=== PATIENT | male | born 1965 | race Caucasian/White ===

== ENCOUNTER 2021-03-01 09:04 | Outpatient (CLI) | payer OTHER ==
[2021-03-02 08:37] VITALS: BP 134/85
--- NOTE | 2021-03-02 08:37 | SLEEP CARE CONSULTATION ---
Information from patient questionnaire entered by Chandan Howe MA. I have reviewed and concur with the information entered by Chandan Howe MA. This document represents the service I personally performed and the decisions made by me, Zaina Talamantes MD, [facility]. History of Present Illness Service Date and Time: 03/01/2021 0904 Reason for Visit: New patient Chief Complaint: reports: Observed pauses in breathing. denies: Snoring Date of Onset: 1989 Usual bedtime: 1100 pm Time it takes to fall asleep: 5-10 minutes Snores at night: Yes Observed to quit breathing while asleep: Yes Sleeps alone due to snoring: No Number of times waking at night: once Reasons for waking at night: reports: Other (unknowm) Morning headache: Yes Sleepy or fatigued during the day: Yes Ever fallen asleep while driving: No Takes day naps: No Dreams during day naps: No Prior sleep studies: No Additional HPI information: I had the pleasure of seeing Mr. Huggins today regarding the possibility of him having a sleep disorder. As you know, he is a 55 year old gentleman who complains of loud snore and his has seen him quit breathing while asleep. The patient tells me that he normally goes to bed around 11 pm, and it takes him approximately 5 - 10 minutes to fall asleep. His sleeps in the same bed. She uses a CPAP. He can recall waking up on the average of 0 - 1 time during the night. Most of the time he wakes up because of having to use the bathroom. He has awakened occasionally because of his own snoring, choking, and having to gasp for air. There is not a lot of tossing and turning in his sleep. No somniloquy (sleep talking) or somnambulism (sleep walking). Generally, there is no recollection of dreams. In the morning he usually gets up out of the bed around 6 - 7 a.m. feeling refreshed and rested. He usually does have a morning headache that lasts for about 30 minutes.. During the day he does not feel sleepy and fatigued. His score on [place] Sleepiness Scale is 7 out of 24. He never has fallen asleep while driving nor has had any accident due to sleepiness. He usually does not take naps during the day. Upon falling asleep during the day he denies having vivid dreams. He has never had sleep paralysis, experienced cataplexy or symptoms of restless leg syndrome. He denies having impaired concentration during the day. 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 Patient is and lives in [place]. Have you smoked in the past 12 months: No Alcohol use: Yes Alcohol amount and frequency: 2-5 X weekly Caffeine use: Yes Caffeine amount and frequency: 1-2 daily Family History Family Hx Sleep Apnea: Father: Snoring, Sleep apnea - Untreated, Sibling: Snoring, Sleep apnea - Treated Allergies and Home Medications Known drug allergies: No Drug allergies reviewed: Yes Home medication list reviewed: Yes Review of Systems Cardiovascular: denies: high blood pressure, palpitations, chest pain, irregular heart rate or pulse, leg or foot swelling, have to sleep sitting up, other Respiratory: denies: shortness of breath, wheeze, sputum production, chronic cough, other Gastrointestinal: denies: heartburn, difficulty swallowing, nausea, vomitting, diarrhea, abdominal pain, other Urinary: denies: incontinence, frequency, urgency, impotence, other Neurological: denies: headaches, seizure, head trauma, disorientation, speech dysfunction, gait or balance problems, fainting or unconsciousness, other Ear/Nose/Throat: denies: nasal congestion, sinus problems, nose bleeds, dry mouth/throat, hoarseness, injury to nose, tonsillectomy, wisdom teeth removed, other Endocrine: denies: thyroid disease, history of goiter, sluggishness, too hot or cold, excessive thirst, increased appetite, increased urination, unexplained weakness, other Physical Exam Vital signs obtained and entered by: Miko HOWE CMA [facility] Blood Pressure: 134/85 (right) Heart Rate: 75 O2 Saturation: 97 (with mask) Height: 6 ft 2 in Weight: 235 lb (with clothes boots) Body Mass Index: 30.2 BMI Classification: Obese Impression and Plan IMPRESSION: 1. Obstructive Sleep Apnea-Hypopnea Syndrome, as suggested by history of loud and irregular snoring, observed cessation of breath while asleep, nocturnal choking, and morning headache, that goes away quickly after waking up. Narrow oropharynx and obesity are common predisposing factors for obstructive sleep apnea-hypopnea syndrome. I recommend proceeding to polysomnography to confirm the diagnosis and to assess severity. If he has significant sleep disordered breathing, a manual CPAP titration study will also be performed to find the optimal treatment pressure. I informed the patient of what the sleep studies involve and after some discussion, he agreed to proceed. Plan: 1. Schedule a home sleep apnea test (HSAT) because his insurance is [employer]. 2. Avoid long distance driving or when feeling sleepy. 3. Avoid alcohol, sedative and muscle relaxant around bedtime. 4. Attempt to lose weight. 5. Return for follow up after the test. Follow up with Sleep Care in: 1-2 months Visit Type: In Office Time Spent with Patient (minutes): 15 Provider Statement: I spent 100% of the Face to Face Visit with the patient with greater than 50% spent counseling the patient and coordination of care.
== END 2021-03-01 09:05 | disposition home or self-care (01) ==
LOC: SC 09:04
PROVIDERS: ATTEND Internal Medicine Pulmonary Disease
DX: R51.9 Headache, unspecified (principal); R06.83 Snoring; G47.8 Other sleep disorders; R06.81 Apnea, not elsewhere classified; E66.9 Obesity, unspecified; Z68.30 Body mass index [BMI] 30.0-30.9, adult
CPT/HCPCS: 99202; 99212

== ENCOUNTER 2021-03-01 10:49 | Outpatient (CLI) | payer OTHER | END 2021-03-01 10:50 | disposition home or self-care (01) | LOC: SC 10:49 | PROVIDERS: ATTEND Internal Medicine Pulmonary Disease | DX: G47.33 Obstructive sleep apnea (adult) (pediatric) (principal); R09.02 Hypoxemia | CPT/HCPCS: 95806 ==

== ENCOUNTER 2021-03-15 11:00 | Outpatient (CLI) | payer OTHER ==
--- NOTE | 2021-03-16 21:49 | SLEEP CARE CONSULTATION ---
Information from patient questionnaire entered by Chandan Howe MA. I have reviewed and concur with the information entered by Chandan Howe MA. This document represents the service I personally performed and the decisions made by me, Zaina Talamantes MD, [facility]. History of Present Illness Service Date and Time: 03/15/2021 1100 Additional HPI information: Mr. Huggins was called for follow up of the home sleep apnea test (HSAT) he had on 03/01/21. The polysomnography showed moderate obstructive sleep apnea- hypopnea, with an AHI of 20.5/hr and lalitha SaO2 of 80%. During the study, the patient had 30 apneas (30 obstructive, 0 central, 0 mixed) and 60 hypopneas. The longest episode lasted 87.5 seconds. The patient did not sleep supine during this study. Hypoxemia was mild, with the lowest oxygen saturation of 80 % and 15.3 minutes with SaO2 under 90%. Baseline oxygen saturation was normal (Average oxygen saturation was 92%). The patient was informed of these findings. I explained to him the pathophysiology behind obstructive sleep apnea. We then spent quite a bit of time discussing different treatment options. For mild obstructive sleep apnea, surgery and oral appliance are alternatives to nasal CPAP therapy but in moderate or severe cases, nasal CPAP is the most effective and reliable treatment. Weight loss in an obese individual is strongly recommended. After some discussion, he opted to go with the nasal CPAP therapy. I explained to him how CPAP machine works and what to expect when using the machine. He is encouraged to use CPAP every night especially in the first 2 to 3 nights in order to get used to it. He should call his CPAP supplier or me to discuss any mechanical problem that may occur. If he snores or feels like he is not getting enough air from the machine, he should notify me and I will increase the pressure. Allergies and Home Medications Drug allergies reviewed: Yes Home medication list reviewed: Yes Review of Systems Review of systems same as previous: Yes Impression and Plan IMPRESSION: 1. Obstructive Sleep Apnea-Hypopnea Syndrome, moderate, associated with moderate hypoxemia. Most likely, this is the cause of the patients symptoms of unrefreshed sleep, and excessive daytime sleepiness. Untreated obstructive sleep apnea-hypopnea can also cause weight gain. As mentioned above, the patient will be started on an autoCPAP set between 5 and 15 cmH2O. Depending on his response and compliance he may be brought back for an overnight CPAP titration study. PLAN: 1. Prescription made for an autoCPAP, heated humidifier, and related supplies. The patient requests [facility] [place] in [place]. 2. Attempt to lose weight and avoid alcohol consumption near bedtime. 3. Be careful when driving, especially if sleepy. 4. Return for follow up after one month of using the CPAP. Prescriptions: Auto CPAP Follow up with Sleep Care in: 1-2 months Follow up recommended for: Weight management Visit Type: Telehealth Video Video Type: VSee Patient Location: Home Other Participants: Spouse/Significant Other Location of Provider: Office Patient agrees and consents to this telehealth visit type: Yes Patient agrees to have their insurance billed: Yes Time Spent with Patient (minutes): 15 Provider Statement: I spent 100% of the Telehealth Video Call with the patient with greater than 50% spent counseling the patient and coordination of care.
== END 2021-03-15 11:01 | disposition home or self-care (01) ==
LOC: SC 11:00
PROVIDERS: ATTEND Internal Medicine Pulmonary Disease
DX: G47.33 Obstructive sleep apnea (adult) (pediatric) (principal)

== ENCOUNTER 2023-06-01 14:54 | Outpatient (CLI) | payer OTHER ==
--- NOTE | 2023-06-01 14:15 | SLEEP CARE CONSULTATION ---
Information from patient questionnaire entered by Lea Pelayo. I have reviewed and concur with the information entered by Lea Pelayo. This document represents the service I personally performed and the decisions made by me, Magy Conroy ARNP. History of Present Illness Service Date and Time: 06/01/2023 1400 Previous diagnosis: Moderate, Obstructive Sleep Apnea-Hypopnea Syndrome AHI: 20.5 Reason for follow up: annual (LAST SEEN 08/2021) Equipment type: CPAP (RESMED AIRSENSE 11 AUTOSET SET UP 05/12/2021) Equipment obtained from: [employer] (getting supplies) Mask style: Nasal Backup mask available: Yes Last cushion change: 4-5 days ago HPI additional information: KEON GORDON was diagnosed to have moderate, AHI 20.5, obstructive sleep apnea-hypopnea syndrome and returns via video appointment today for CPAP therapy annual follow-up. CPAP Compliance Data - Data Reviewed with Patient Average duration of nightly device use: 6 HRS 23 MINS Compliance rate %: 84 (05/31/22-05/30/23; 348/365 days used) Current pressure setting (cmH2O): 5-15 Average residual AHI: 1.0 Central apnea: 0.4 Obstructive apnea: 0.1 Hypopnea: 0.3 Average large leak: 4.1 L/min Subjective Patient concerns: denies: aerophagia, mask discomfort, air blowing in eyes, mask leak noise, condensation in mask/hose, nasal congestion, dry mouth, nose, throat, epistaxis Observed to snore while using device: No Current pressure setting perceived as: comfortable On therapy, patient: reports: sleeping better, awakening more refreshed, being more awake and alert during the day, more rested overall. denies: drowsiness while driving Initial [place] Sleepiness Scale score: 7 (02/2021) Current [place] Sleepiness Scale score: 3 (06/01/23) Allergies and Home Medications Known drug allergies: No Drug allergies reviewed: Yes Home medication list reviewed: Yes (no changes) Review of Systems Review of systems same as previous: Yes (NO CHANGE) Physical Exam Vital signs obtained and entered by: LEA Sheffield MA Height: 6 ft 2 in (PER PT) Weight: 225 lb (PER PT) Body Mass Index: 28.8 BMI Classification: Overweight Impression and Plan 1. Obstructive Sleep Apnea-Hypopnea Syndrome, moderate, with good treatment compliance and good apnea control. On CPAP therapy, the patient has better sleep quality and is more rested overall. Patient states he cannot sleep without his machine and really likes using it. Patient has significant improvement of their sleep apnea and is satisfied with current CPAP therapy. Patient denies problems with oral dryness, nasal congestion, epistaxis, skin irritation or aerophagia. Patient's apnea severity and rationale for treatment to reduce apnea, improve sleep quality and reduce cardiovascular and cerebrovascular events was reviewed. 2. Overweight, unspecified. Currently patients BMI is 28.8. Obesity increases the risk of apnea, CPAP pressure requirements and overall health risks especially cardiovascular and diabetes. Thus patient is advised to lose weight. * Continue auto CPAP pressure at 5-15 cmH2O * Update supply prescription * Notify me if snoring with mask or feeling that the pressure is too much or too little * Maintain healthy weight * Call this office if any problems using CPAP * Return for follow up in 12 months, or sooner if concerns arise Counseling Topics: Weight loss health impact Prescriptions: Device supplies Follow up with Sleep Care in: 1 year Visit Type: Telehealth Video Video Type: Ree Patient Location: vacation Location of Provider: Office Patient agrees and consents to this telehealth visit type: Yes Time Spent with Patient (minutes): 17 Provider Statement: I spent 100% of the Telehealth Video Call with the patient with greater than 50% spent counseling the patient and coordination of care.
== END 2023-06-01 14:55 | disposition home or self-care (01) ==
LOC: SC 14:54
PROVIDERS: ATTEND Nurse Practitioner Family
DX: G47.33 Obstructive sleep apnea (adult) (pediatric) (principal)
CPT/HCPCS: 99212